=== PATIENT | female | born 1985 | race African-American/Black ===

== ENCOUNTER 2017-05-18 23:43 | Emergency (ER) | payer OTHER ==
[~2017-05-18] VITALS: Ht 157.5 cm; Wt 81.0 kg
[2017-05-19 01:35] LABS: APPEARANCE CLOUDY ((CLEAR)); BILIRUBIN NEGATIVE; BLOOD MODERATE; COLOR YELLOW ((YELLOW)); GLUCOSE (STRIP) NEGATIVE; KETONES NEGATIVE; LEUKOCYTES LARGE; NITRITE NEGATIVE; PROTEIN (STRIP) 30; SOURCE SWAB; UROBILINOGEN 0.2 MG/DL (0.2-1.0)
[2017-05-19 01:48] LABS: BACTERIA 2+ /HPF; EPITHELIAL CELLS 2+ /HPF; MUCUS 1+ /LPF; UCUL ADDED? YES; WHITE BLOOD CELLS TNTC /HPF (0-5)
[2017-05-19] MEDS ORDERED: KEFLEX500 MG PO (02:14)
[2017-05-19] MEDS ORDERED: FLAGYL500 MG PO (02:14)
[2017-05-19 02:30] LABS: CANDIDA DNA PROBE NEGATIVE; GARDNERELLA DNA PROBE POSITIVE; TRICHOMONAS DNA PROBE NEGATIVE
[2017-05-19 03:01] VITALS: BP 124/80
== END 2017-05-19 03:02 | disposition home or self-care (01) ==
LOC: EME 23:43
PROVIDERS: Physician Assistant
DX: N39.0 Urinary tract infection, site not specified (principal); N76.0 Acute vaginitis; Z20.2 Contact with and (suspected) exposure to infections with a predominantly sexual mode of transmission; F17.200 Nicotine dependence, unspecified, uncomplicated
CPT/HCPCS: 81003; 84702; 87086; 87210; 87480; 87491; 87510; 87591; 87660; 99281; 99284; J0696